=== PATIENT | female | born 2000 | race Caucasian/White ===

== ENCOUNTER 2023-04-07 20:34 | Outpatient (REF) | payer BC, SELFPAY ==
[2023-04-12 11:09] LABS: Age Gdln ACOG Testing Note (.); IGP, rfx Aptima HPV ASCU Note (.)
== END 2023-04-07 20:35 | disposition home or self-care (01) ==
LOC: LAB 20:34
PROVIDERS: Visit Provider Obstetrics & Gynecology
DX: Z12.4 Encounter for screening for malignant neoplasm of cervix (principal)
CPT/HCPCS: G0145

== ENCOUNTER 2024-04-20 19:33 | Outpatient (REF) | payer BC, SELFPAY | END 2024-04-20 19:34 | disposition home or self-care (01) | LOC: LAB 19:33 | PROVIDERS: Visit Provider Obstetrics & Gynecology | DX: Z01.419 Encounter for gynecological examination (general) (routine) without abnormal findings (principal) | CPT/HCPCS: 88175 ==

== ENCOUNTER 2025-05-09 19:19 | Outpatient (REF) | payer BC, SELFPAY ==
--- OUTSIDE RECORDS SUMMARY | 2025-05-09 13:20 | XMS_ITS | Encounter Summary ---
Author Organization [facility] Address [address] [place] [address] Care Team Providers Care Chief Of Staff Name Role Phone Unavailable Primary Care Provider Unavailabl e Reason for Visit * Reason Comments Gynecologic Exam Encounter Details Date Type Department Care Team (Late st Contact Info) Description 05/09/2025 1:20 PM EDT Office Visit [facility] [address] [place] [id number] Tex Srinivasan DO [address] [place] [address] Well woman exam with routine gynecological exam Social History Tobacco Use Types Packs/Day Years Used Date Smoking Tobacco: Never Assessed Comments No Sex and Gender Information Value Date Recorded Sex Assigned at Not on file Legal Sex Female 11:47 PM EDT Gender Identity Not on file Sexual Orientation Not on file documented as of this encounter Last Filed Vital Signs Vital Sign Reading Time Taken Comments Blood Pressure 108/62 05/09/2025 1:08 PM EDT Pulse - - Temperature - - Respiratory Rate - - Oxygen Saturation - - Inhaled Oxygen Concentration - - Weight 74.8 kg (164 lb 12.8 oz) 05/09/2025 1:08 PM EDT Height 160 cm (5' 3 ) 05/09/2025 1:08 PM EDT Body Mass Index 29.19 05/09/2025 1:08 PM EDT documented in this encounter Progress Notes * Vickie Lucas LPN - 05/09/2025 1:20 PM EDT Reason for Appointment: Patient ID: Xin Bolivar is a 25 y.o. female who presents for Gynecologic Exam Patient presents today for Annual Exam. MEDICATIONS Current Outpatient Medications Medication Instructions Hinds-Linyah 0.25-35 MG-MCG tablet 1 tablet, Oral, Daily ALLERGIES Allergies[1] PROBLEMS Active Ambulatory Problems Diagnosis Date Noted Dyspareunia in female 05/25/2024 UTI symptoms 05/25/2024 Resolved Ambulatory Problems Diagnosis Date Noted No Resolved Ambulatory Problems No Additional Past Medical History HISTORY PAST MEDICAL HISTORY SOCIAL HISTORY Medical History[2] Social History Tobacco Use Smoking status: Not on file Smokeless tobacco: Not on file Substance Use Topics Alcohol use: Not on file Drug use: Not on file FAMILY HISTORY Family History[3] SURGICAL HISTORY Surgical History[4] REVIEW OF SYSTEMS Review of Systems: Review of Systems Constitutional: Negative. HENT: Negative. Eyes: Negative. Respiratory: Negative. Cardiovascular: Negative. Gastrointestinal: Negative. Genitourinary: Negative. Musculoskeletal: Negative. Skin: Negative. Neurological: Negative. All other systems reviewed and are negative. Hematological: Negative. Endocrine: Negative. Allergic/Immunologic: Negative. OBJECTIVE Objective: Physical Exam Constitutional: Appearance: Normal appearance. She is well-developed. Genitourinary: Vulva normal. Breasts: Breasts are soft. Right: Normal. Left: Normal. Cardiovascular: Rate and Rhythm: Normal rate and regular rhythm. Pulmonary: Effort: Pulmonary effort is normal. Breath sounds: Normal breath sounds. Abdominal: General: Bowel sounds are normal. There is no distension. Palpations: Abdomen is soft. Tenderness: There is no abdominal tenderness. There is no guarding or rebound. Musculoskeletal: General: No swelling. Normal range of motion. Right lower leg: No edema. Left lower leg: No edema. Neurological: Mental Status: She is alert and oriented to person, place, and time. Skin: General: Skin is warm and dry. Psychiatric: Mood and Affect: Mood normal. Behavior: Behavior normal. Vitals and nursing note reviewed. Exam conducted with a carroting machine offbearer present. Vitals: Estimated body mass index is 29.19 kg/m?? as calculated from the following: Height as of this encounter: 5' 3 . Weight as of this encounter: 164 lb 12.8 oz. BP: 108/62 No LMP recorded. ASSESSMENT & PLAN ICD-10-CM 1. Well woman exam with routine gynecological exam Z01.419 Pap Smear No orders of the defined types were placed in this encounter. Annual Wellness Exam: Patient presents today for routine annual exam. Patient states she has no current complaints. Patients vitals were reviewed and within normal limits. Growth and development is noted to be appropriate for age. Menstrual history is noted to be regular with no concerns reported. No mental health concerns was expressed. Pap Smear: Speculum was inserted into the vagina and pap was obtained without difficulty. No HPV testing was performed per age guideline. Patient was advised that pap results could take anywhere from 7 to 10 days to receive and our office will reach out to the patient with those once we have them. Patient canalso view results via [facility]. I reinforced importance of condom use for STI prevention. Patient declined cultures to be performed with today's visit. Breast Exam: Upon examination, clinical breast exam was noted to be normal. Patient was counseled on breast self-awareness, including the importance of knowing what is normal for her own breasts and promptly reporting any changes such as new lumps, skin dimpling, nipple discharge, or pain. Screening mammogram recommended annually beginning at age 40 or earlier if risk factors are present. Discussed signs and symptoms of breast cancer and when to seek medical attention. Answered all patient questions. Contraceptive Counseling (if applicable): Patient is currently using oral contraception as a form of contraceptive. Patient to continue ocp Follow Up: Patient is to return to our office in one year for annual exam unless needed otherwise. Documented by Vickie Lucas LPN on behalf of: Tex Srinivasan DO [1] Allergies Allergen Reactions Other [2] No past medical history on file. [3] No family history on file. [4] History reviewed. No pertinent surgical history. documented in this encounter Plan of Treatment Upcoming Encounters Date Type Department Care Team (Late st Contact Info) Description 05/16/2026 11:00 AM EDT Procedure Visit [facility] [address] [place] [id number] Tex Srinivasan DO [address] [place], [place] [id number] Scheduled Orders Name Type Priority Associated Diagnoses Orde r Schedule Pap Smear Pathology and Cytology Routine Well woman exam with routine gynecological exam Ordered: 05/09/2025 documented as of this encounter Visit Diagnoses Diagnosis Well woman exam with routine gynecological exam Routine gynecological examination documented in this encounter
--- OUTSIDE RECORDS SUMMARY | 2025-05-09 19:22 | XMS_ITS | CCD ---
Author Organization [facility] Care Team Providers Care Sound Equipment Mechanic Name Role Phone HOUSE, DR ADLER Primary Care Unavailable STAS ., DR QUINONES Attending Christy MCCLELLAND ., DR QUINONES Consulting Christy MCCLELLAND ., DR QUINONES Admitting Donaldabl e Madhavi Primary Care Provider ALFREDO Vigil Attending Unavailable ALFREDO SRINIVASAN Attending Unavailable Allergies Allergy Classification Reported Allergen(s) Allergy Type Date of Onset Reaction(s) Facility (6 sources) Other Propensity to adverse reactions 3 [facility] Medications Current Medications Medication Drug Class(es) Dates Sig (Normalized) Sig (Original) ethinyl estradiol 0.035 mg / norgestimate 0.25 mg oral tablet (9 sources) Progestin, Estrogen Start: 02-28-2024 End: 04-20-2025 norgestimate-ethinyl estradiol (Dickenson-Linyah) 0.25-35 MG-MCG tablet Indications: Encounter for surveillance of contraceptive pills Take 1 tablet by mouth Daily 360 tablet 04/20/2024 04/20/2025 Active Problems Active Problems Problem Classification Problem Date Documented Date Episodic/Chronic Contraceptive and procreative management (2 sources) Oral contraception; Translations: [Encounter for surveillance of contraceptive pills] 04-20-2024 Episodic Genitourinary symptoms and ill-defined conditions (4 sources) Urinary symptoms ; Translations: [Unspecified symptoms and signs involving the genitourinary system] Onset: 05-25-2024 05-25-2024 Episodic Other female genital disorders (4 sources) Pain in female genitalia on intercourse; Translations: [Unspecified dyspareunia] Onset: 05-25-2024 05-25-2024 Chronic Past or Other Problems Problem Classification Problem Date Documented Da te Episodic/Chronic Other screening for suspected conditions (not mental disorders or infectious disease) (4 sources) Encounter for screening for malignant neoplasm of cervix; Translations: [ENC SCREENING MALIG NEOPLASM CERV] Onset: 03-27-2022 Episodic Results Test Name Value Interpretation Reference Range Facil ity IGP,APTIMA HPV,AGE GDLNon AGE GDLN ACOG TESTING Note . [facility] Comment on above: TESTS RESULT FLAG UN ITS REF RANGE LAB Clinician Provided Cytology Information Source.............Cervix;Endocervix No. of containers..01 ThinPrep Vial Age Algo ACOG Tosha... FLAG LEGEND: L-Low Normal,H-High Normal,LL-Alert Low,HH-Alert High <-Panic Low,>-Panic High,A-Abnormal,AA-Critical Abnormal Performed at: 01 =G [address] [address] Sommer Nieto MD, IGP, RFX APTIMA HPV ASCU Note . [facility] Comment on above: TESTS RESULT FLAG UN ITS REF RANGE LAB DIAGNOSIS: 02 NEGATIVE FOR INTRAEPITHELIAL LESION OR MALIGNANCY. THIS SPECIMEN WAS RESCREENED PART OF OUR PLUG MAKER PROGRAM. Specimen adequacy: 02 Satisfactory for evaluation. Endocervical and/or squamous metaplastic cells (endocervical component) are present. Performed by: 02 Sonia Jeffries, Window Shade Cutter ([facility]) QC reviewed by: 02 Ina Atwood, Window Shade Cutter ([facility]) . 02 Note: Note 02 The Pap smear is a screening test designed to aid in the detection of premalignant and malignant conditions of the uterine cervix. It is not a diagnostic procedure and should not be used as the sole means of detecting cervical cancer. Both false-positive and false-negative reports do occur. Test Methodology: Note 02 This liquid based ThinPrep(R) pap test was screened with the use of an image guided system. . 02 The HPV DNA reflex criteria were not met with this specimen result therefore, no HPV testing was performed. FLAG LEGEND: L-Low Normal,H-High Normal,LL-Alert Low,HH-Alert High <-Panic Low,>-Panic High,A-Abnormal,AA-Critical Abnormal Performed at: [address] [place] [address] Sommer Nieto MD, Performed at: =G - [facility] [address], [place] [id number] Director Of Outreach: Sommer Nieto MD, Phone: [phone] Performed at: - [facility] [id number] Director Of Outreach: Sommer Nieto MD, Phone: [phone] BRUSH-SPATULA CERVIX ENDOCERVIX [facility] PAP ACOG PANEL 2: 21 to 29on 04-03-2022 . . Normal [facility] Comment on above: Performed By: #### [id number] #### [facility] [address] [place] [address] Dr. Dasha Balderrama Age Gdln ACOG Testing 21-29 [facility] Comment on above: Performed By: #### [id number] #### [facility] [address] [place] [address] Dr. Dasha Balderrama DIAGNOSIS: Comment [facility] Comment on above: Result Comment: NEGA TIVE FOR INTRAEPITHELIAL LESION OR MALIGNANCY. Performed By: #### [id number] #### [facility] [address] [place] [address] Dr. Dasha Balderrama Methodology: Comment [facility] Comment on above: Result Comment: This liquid based ThinPrep(R) pap test was screened with the use of an image guided system. Performed By: #### 4 [id number] #### [facility] [address] [place] [address] Dr. Dasha Balderrama Note: Comment [facility] Comment on above: Result Comment: The Pap smear is a screening test designed to aid in the detection of premalignant and malignant conditions of the uterine cervix. It is not a diagnostic procedure and should not be used as the sole means of detecting cervical cancer. Both false-positive and false-negative reports do occur. . Performed By: #### 4 [id number] #### [facility] [address] [place] [address] Dr. Dasha Balderrama Performed by: Comment Normal [facility] Comment on above: Result Comment: Allison Mays Window Shade Cutter (AS[facility]) Performed By: #### [id number] #### [facility] [address] [place] [address] Dr. Dasha Balderrama Reflex Criteria: Comment [facility] Comment on above: Result Comment: The HPV DNA reflex criteria were not met with this specimen result therefore, no HPV testing was performed. . Performed By: #### 4 [id number] #### [facility] [address] [place] [address] Dr. Dasha Balderrama Specimen adequacy: Comment Normal [facility] Comment on above: Result Comment: Sati sfactory for evaluation. Endocervical and/or squamous metaplastic cells (endocervical component) are present. Performed By: #### 4 [id number] #### [facility] [address] [place] [address] Dr. Dasha Balderrama Operative Reporton Operative Report [id number] 0CD:127 Normal [facility] Lab Reportson 05-14-2021 Lab Reports [id number] 0CD:127 [facility] Ambulatory Clinical Summaryo 04-21-2021 Ambulatory Clinical Summary {[id number]}CD:[id number] [facility] Ambulatory Clinical Summary {[id number]}CD:[id number] [facility] Formson 04-21-2021 Forms [id number] 0CD:127 Normal [facility] Patient Educationon 04-21-20 21 Patient Education Urology Urinary Frequency, Adult Urinary frequency means urinating more often than usual. You may urinate every 1?2 hours even though you drink a normal amount of fluid and do not have a bladder infection or condition. Although you urinate more often than normal, the total amount of urine produced in a day is normal. With urinary frequency, you may have an urgent need to urinate often. The stress and anxiety of needing to find a bathroom quickly can make this urge worse. This condition may go away on its own or you may need treatment at home. Home treatment may include bladder training, exercises, taking medicines, or making changes to your diet. Follow these instructions at home: Bladder health ? Keep a bladder diary if told by your health care provider. Keep track of: ? What you eat and drink. ? How often you urinate. ? How much you urinate. ? Follow a bladder training program if told by your health care provider. This may include: ? Learning to delay going to the bathroom. ? Double urinating (voiding). This helps if you are not completely emptying your bladder. ? Scheduled voiding. ? Do Kegel exercises as told by your health care provider. Kegel exercises strengthen the muscles that help control urination, which may help the condition. Eating and drinking ? If told by your health care provider, make diet changes, such as: ? Avoiding caffeine. ? Drinking fewer fluids, especially alcohol. ? Not drinking in the evening. ? Avoiding foods or drinks that may irritate the bladder. These include coffee, tea, soda, artificial sweeteners, citrus, tomato-based foods, and chocolate. ? Eating foods that help prevent or ease constipation. Constipation can make this condition worse. Your health care provider may recommend that you: ? Drink enough fluid to keep your urine pale yellow. ? Take xhof-zxk-hmwfdeq or prescription medicines. ? Eat foods that are high in fiber, such as beans, whole grains, and fresh fruits and vegetables. ? Limit foods that are high in fat and processed sugars, such as fried or sweet foods. General instructions ? Take fzjf-xep-pricxua and prescription medicines only as told by your health care provider. ? Keep all follow-up visits as told by your health care provider. This is important. Contact a health care provider if: ? You start urinating more often. ? You feel pain or irritation when you urinate. ? You notice blood in your urine. ? Your urine looks cloudy. ? You develop a fever. ? You begin vomiting. Get help right away if: ? You are unable to urinate. Summary ? Urinary frequency means urinating more often than usual. With urinary frequency, you may urinate every 1?2 hours even though you drink a normal amount of fluid and do not have a bladder infection or other bladder condition. ? Your health care provider may recommend that you keep a bladder diary, follow a bladder training program, or make dietary changes. ? If told by your health care provider, do Kegel exercises to strengthen the muscles that help control urination. ? Take wdwb-rfu-frzevcg and prescription medicines only as told by your health care provider. ? Contact a health care provider if your symptoms do not improve or get worse. This information is not intended to replace advice given to you by your health care provider. Make sure you discuss any questions you have with your health care provider. Document Released: 05/08/2010 Document Revised: 01/19/2019 Document Reviewed: 01/19/2019 [employer] Patient Education ? 2019 [employer] [facility] Physician Orderon 04-21-2021 Physician Order [id number] 0CD:127 [facility] Physician Referralon 021 Physician Referral [id number] 0CD:127 [facility] Provider Letter FTMCon 04-21 Provider Letter FT April 21, [address] [address] [facility] 2001 To Whom It May Concern, Please excuse above patient from work. Date of Illness: From: 05/15/21 To: 05/15/21 May Return to Work On:05/16/2021 Restrictions: No restrictions Comments: Patient is having a surgical procedures on 05/15/21 under anesthesia. Sincerely, Nick Coelho M.D., F.A.C.S. [facility] [address] [place] [id number] [facility] Vital Signs Date Time Vital Sign Value Performing Clinician Reymundo lou 04-20-2024 11:24-0400 Body mass index (BMI) [Ratio] 29.23 kg/m2 Alfredo Craig DO Work Phone: [facility] 04-20-2024 11:24-0400 Body weight 74.84 kg Alfredo Craig DO Work Phone: [facility] 04-20-2024 11:24-0400 Diastolic blood pressure 70 mm[Hg] Alfredo Craig DO Work Phone: [facility] 04-20-2024 11:24-0400 Systolic blood pressure 116 mm[Hg] Alfredo Craig DO Work Phone: [facility] Encounters Encounter Date Encounter Type Care Provider Facility Start: 05-25-2024 End: 05-25-2024 Bamboo flowsheet Alfredo Craig DO Work Phone: [facility] Start: 05-25-2024 End: 05-25-2024 Bamboo flowsheet Alfredo Craig DO Work Phone: [facility] Start: 05-25-2024 End: 05-25-2024 ambulatory ALFREDO CRAIG Not Available Start: 05-23-2024 End: 05-25-2024 Phys/qhp telephone evaluation 5-10 min Alfredo Craig DO Work Phone: [facility] Comment on above: Dyspareunia in femal e; UTI symptoms Start: 04-20-2024 End: 04-20-2024 Bamboo flowsheet Alfredo Craig DO Work Phone: [facility] Start: 04-20-2024 End: 04-28-2024 [facility] Result Encounter Alfredo Craig DO Work Phone: [facility] Unsolicited Start: 04-20-2024 End: 04-28-2024 [facility] Result Encounter Alfredo Craig DO Work Phone: [facility] Unsolicited Start: 04-20-2024 End: 04-20-2024 Patient encounter procedure Alfredo Craig DO Work Phone: [facility] Healthcare Start: 04-20-2024 End: 04-20-2024 Periodic preventive med est patient 18-39 yrs Alfredo Craig DO Work Phone: [facility] Comment on above: Well woman exam with routine gynecological exam; Encounter for surveillance of contraceptive pills Start: 04-20-2024 End: 04-20-2024 ambulatory ALFREDO CRAIG Not Available Start: 03-27-2022 End: 03-27-[address] NAYELY OG Facility:[facility]1 Procedures Date Procedure Procedure Detail Performing Clinician Start: 04-20-2024 IGP,APTIMA HPV,AGE GDLN Alfredo Craig DO Work Phone: Plan of Treatment Date Care Activity Detail Author Start: 04-26-2025 End: 04-26-2025 Patient encounter procedure 04/26/2025 11:00 AM EDT Office Visit [facility] [address] [place] [id number] Alfredo Srinivasan, DO [address], [place] [id number] [facility] Start: 05-22-2024 End: 05-22-2024 Patient encounter procedure 05/22/2024 8:00 AM EDT Office Visit [facility] [address] [place] [address] Alfredo Srinivasan, DO [address] [place] [address] [facility] Start: 04-20-2024 End: 04-20-2024 Patient encounter procedure 04/20/2024 11:00 AM EDT Office Visit [facility] [address] [place] [address] Alfredo Srinivasan, DO [address], [place] [id number] Arrived [facility] Comment on above: Arrived Cytology Cervical or vaginal smear or scraping study Pap Smear Pathology and Cytology Routine Well woman exam with routine gynecological exam Ordered: 04/20/2024 [facility] Work Phone: Comment on above: Ordered: 04/20/2024 Payers Date Payer Category Payer [employer] BCBS [id number] 2022 Unknown BCBS BCBS xxxxxx [id number] 2022-Present [phone] [address] [place] [address] [id number] 2001 Unknown [id number] 2001 Unknown [id number] 2001 Unknown [id number] 1959 Unknown [id number] Social History Date Type Detail Facility Tobacco smoking stat [facility] Tobacco smoking consumption unknown [facility] Healthcare Start: 2001 Sex assigned at Not on file N [facility] Gender identity Not on file [facility] are History of Present illness Narrative 05-23-2024 Suzi Hugo LPN - 05/23/2024 12:05 AM EDT Note Date & Type Note Facility 05-23-2024 History of Presen t illness Narrative Reason for Appointment: Patient ID: Xin Bolivar is a 24 y.o. female who presents for No chief complaint on file. Patient presents today via telephone call for a telehealth appointment. Patients Phone #: [phone] (mobile) Current Medications: has a current medication list which includes the following prescription(s): norgestimate-ethinyl estradiol. Medical History: Active Ambulatory Problems Diagnosis Date Noted No Active Ambulatory Problems Resolved Ambulatory Problems Diagnosis Date Noted No Resolved Ambulatory Problems No Additional Past Medical History No family history on file. Social History Tobacco Use Smoking status: Not on file Smokeless tobacco: Not on file Substance Use Topics Alcohol use: Not on file Drug use: Not on file No past surgical history on file. Allergies Allergen Reactions Other Vitals: Estimated body mass index is 29.23 kg/m as calculated from the following: Height as of 04/07/23: 5' 3 . Weight as of 04/20/24: 165 lb. BP: No LMP recorded. Assessment/Plan 0964 Provider called patient and to follow up to see how Premarin cream was working since last appointment, since samples were given of Premarin. Patient voiced that she did not have time to do medication regimen and will make it a priority over the next 2 weeks and then contact office. Today's telehealth visit consisted of spending 5 minutes talking to patient on the phone. Documented by Suzi Hugo LPN on behalf of: Alfredo Srinivasan DO documented in this encounter [facility] History of Present illness Narrative 04-20-2024 Suzi Hugo LPN - 04/20/2024 11:00 AM EDT Note Date & Type Note Facility 04-20-2024 History of Presen t illness Narrative Reason for Appointment: Patient ID: Xin Bolivar is a 24 y.o. female who presents for Gynecologic Exam Patient presents today for Annual Exam. MEDICATIONS Current Outpatient Medications Medication Instructions norgestimate-ethinyl estradiol (Dickenson-Linyah) 0.25-35 MG-MCG tablet 1 tablet, Oral, Daily ALLERGIES Allergies Allergen Reactions Other PROBLEMS Active Ambulatory Problems Diagnosis Date Noted No Active Ambulatory Problems Resolved Ambulatory Problems Diagnosis Date Noted No Resolved Ambulatory Problems No Additional Past Medical History HISTORY PAST MEDICAL HISTORY SOCIAL HISTORY No past medical history on file. Social History Tobacco Use Smoking status: Not on file Smokeless tobacco: Not on file Substance Use Topics Alcohol use: Not on file Drug use: Not on file FAMILY HISTORY No family history on file. SURGICAL HISTORY No past surgical history on file. REVIEW OF SYSTEMS Review of Systems: Review of Systems Genitourinary: Positive for pelvic pain and vaginal pain. All other systems reviewed and are negative. OBJECTIVE Objective: Physical Exam Constitutional: Appearance: Normal [...] nursing note reviewed. Exam conducted with a ortho assistant present. Vitals: Estimated body mass index is 29.23 kg/m as calculated from the following: Height as of 04/07/23: 5' 3 . Weight as of this encounter: 165 lb. BP: 116/70 Patient's last menstrual period was 04/11/2024 (exact date). ASSESSMENT & PLAN ICD-10-CM 1. Well woman exam with routine gynecological exam Z01.419 Pap Smear 2. Encounter for surveillance of contraceptive pills Z30.41 norgestimate-ethinyl estradiol (Dickenson-Linyah) 0.25-35 MG-MCG tablet Annual Exam: Patient presents today for an annual exam. Patient states she is doing well other than urinary issues. Patient voiced that she saw Urology in the past and had a procedure done with no improvement. Patient denies any painful intercourse. Discussed Premarin Cream and Steroid over urethra to see if there is improvement after 2 weeks. Pap was obtained without difficulty. Patient will start with Premarin cream to see if it helps for 1 month and schedule telehealth. Follow Up: Patient is to return in one year for annual unless needed otherwise. Documented by Suzi Hugo LPN on behalf of: Alfredo Srinivasan DO documented in this encounter [facility] Clinical Note 04-21-2021 Note Date & Type Note Facility 04-21-2021 Note Chief Complaint Referral for frequency and nocturia [facility] New pt referred by Dr. Limon for urinary frequency and nocturia. Pt states she has been having these symptoms for about 6 months now. PVR today is 55ml. Dysuria: no Incomplete bladder emptying: pt feels she is not emptying Hematuria: no Frequency: yes pt states that on a bad day she is going every half hour Urgency: yes Nocturia: pt states it varies, sometimes she is up as much as 5x Stream: varies Leaking: only if she holds it too long Post void dripping: no Wearing pads/ Depends: no Urge incontinence: no Stress incontinence: sometimes if she coughs Incontinence without Sensory Awareness: no Abdominal pain: no Flank pain: no Sexual complaints: no History of Present Illness Reviewed UA and referral. There have been no associated fever, chills, flank pain or blood in the urine. Pt. denies any pain/burning with urination at this time. Review of Systems PHQ Score Initial Depression Screen Score: 0 ROS - Provider Constitutional: denies weight loss, denies hot flashes. Eyes: denies eye problems. Gastrointestinal: denies nausea, denies vomiting. Cardiovascular: denies chest pain or angina. Integumentary: no dryness Musculoskeletal: denies musculoskeletal symptoms. ENMT: denies otolaryngeal symptoms. Respiratory: no shortness of breath. Heme/Lymph: denies easy bleeding tendency, denies easy bruising tendency. Psychiatric: no confusion, no anxiety. Genitourinary: denies vaginal discharge, denies incontinence, denies dysuria, denies hematuria, severe urinary frequency, denies amenorrhea, denies menorrhagia, denies abnormal bleeding, denies pelvic pain, denies genital sores, and denies decreased libido. Physical Exam Vitals & Measurements HR: 98(Peripheral) RR: 16 BP: 115/75 HT: 163 cm HT: 163.0 cm WT: 70 kg WT: 70.0 kg BMI: 26.35 General Appearance: alert , no acute distress, well nourished, well developed female. Head: normocephalic . Eyes: normal orbit and globe. ENMT: normal examination of external ears. Chest: Lungs CTA, respirations non labored . Cardiovascular: regular rate and rhythm. Abdomen: soft, non distended, no tenderness, no mass or organomegaly, no hernia. Genitourinary: bladder nonpalpable, no flank tenderness. Lymph Nodes: unremarkable palpation of the cervical area. Skin: warm, dry, no bruising. Psychiatric: cooperative, affect appropriate for age, normal judgement, euthymic mood. Assessment/Plan 1. Urinary frequency (R35.0: Frequency of micturition) Ongoing for the past 6mos. Every half hour during the day and 5x/night. UA today shows no signs of infection. Will schedule Cystoscopy/UD. The risks and benefits have been discussed. The risks include bleeding, infection, and irritation of the bladder and urinary channel, among others. The patient, after being informed of procedural details and after questions have been answered, wishes to proceed. Full informed consent has been obtained. Will order Local anesthesia. ABX sent. Pt. is informed to always wipe from front to back to prevent infections as she has been doing the opposite. Pt. acknowledges understanding. 2. Urgency of urination (R39.15: Urgency of urination) Moderate. 3. Feeling of incomplete bladder emptying (R39.14: Feeling of incomplete bladder emptying) Pt. does not feel she's emptying. PVR today - 55ml. 4. Proteinuria (R80.9: Proteinuria, unspecified) Acute. UA today - 100mg/dL. Will continue to monitor. I have reviewed the previous health record information and history for this pt. from Dr. Coelho. Follow-up With When Contact Information JEREMIE ALFONSO, Nick Negro, UR [address] [place] [phone] Additional Instructions: Patient Education Urinary Frequency, Adult I, Scarlett Richards , personally scribed for Dr. Coelho on 04/21/2021 11:20:29. . Documentation recorded by the scribe, Scarlett Richards, accurately reflects the services(s) I performed and decisions made by me. Authenticated by Dr. Coelho on 04/21/2021 11:22:52. Problem List/Past Medical History Ongoing Anxiety Feeling of incomplete bladder emptying Frequent headaches Menorrhagia Proteinuria Urgency of urination Urinary frequency Historical No qualifying data Medications Tri-Sprintec 35 mcg Tab Allergies No Known Medication Allergies Social History Alcohol - No Risk, 04/21/2021 Tobacco Never (less than 100 in lifetime) Tobacco Use:., 04/21/2021 Family History Diabetes: Grandparent. High cholesterol: Grandparent. Lab Results Ambulatory Point of Care Results Bilirubin Urine Dipstick: 1+ Small (04/21/21 10:22:00) Blood Urine Dipstick: Negative (04/21/21 10:22:00) Glucose Urine Dipstick: Negative (04/21/21 10:22:00) Ketones Urine Dipstick: Trace - 5 mg/dl (04/21/21 10:22:00) Leukocytes Urine Dipstick: 1+ Small (04/21/21 10:22:00) Nitri (more content not included)... [facility] Comment on above: Result Comment: Elec tronically Signed By: Nick COELHO MD\.br\Date and Time Signed: 04/21/21 11:22 EDT\.br\Electronically Co-Signed By: Scarlett Richards MA\.br\Date and Time Co-Signed: 04/21/21 11:20 EDT Evaluation note Note Date & Type Note Facility Evaluation note Diagnosis Dyspareunia in female UTI symptoms documented in this encounter [facility] Evaluation note Note Date & Type Note Facility Evaluation note Diagnosis Well woman exam with routine gynecological exam Routine gynecological examination Encounter for surveillance of contraceptive pills documented in this encounter [facility] Healthcare Summary Purpose Family History No Family History Records FoundNo Family History Records FoundNo Family History Records Found Advance Directives No Advanced Directives Records FoundNo Advanced Directives Records FoundNo Advanced Directives Records Found Additional Source Comments INFORMATION SOURCE (unrecogn ized section and content) DATE CREATED AUTHOR 05/23/2021 [facility] DATE CREATED AUTHOR AUTHOR'S ORGANIZ ATION 11/13/2022 [facility] DATE CREATED AUTHOR AUTHOR'S ORGANIZ ATION 05/27/2024 [facility] Reason for Visit (unrecogniz ed section and content) Reason Comments follow up medication urinary symptoms Reason Comments Gynecologic Exam FOR RECORDS PERTAINING TO PATIENTS WHO ARE OR HAVE BEEN ENROLLED IN A CHEMICAL DEPENDENCY/SUBSTANCEABUSE PROGRAM, SOME INFORMATION MAY BE OMITTED. This clinical summary was aggregated from multiple sources. Caution should be exercised in using it in the provision of clinical care. This summary normalizes information from multiple sources, and as a consequence, information in this document may materially change the coding, format and clinical context of patient data. In addition, data may be omitted in some cases. CLINICAL DECISIONS SHOULD BE BASED ON THE PRIMARY CLINICAL RECORDS. [facility] [employer] [facility]. provides no warranty or guarantee of the accuracy or completeness of information in this document.
--- OUTSIDE RECORDS SUMMARY | 2025-05-09 19:22 | XMS_ITS | Encounter Summary ---
Author Organization [facility] Address [address] [facility] [place] [address] Care Team Providers Care Stucco Applicator Name Role Phone Unavailable Primary Care Provider Unavailabl e Encounter Details Date Type Department Care Team (Late st Contact Info) Description 04/28/2024 Orders Only [facility] [address] [place] [address] [place] Jackson LPN [address] [facility] [place] [facility] Social History Tobacco Use Types Packs/Day Years Used Date Smoking Tobacco: Never Assessed Comments No Sex and Gender Information Value Date Recorded Sex Assigned at Not on file Legal Sex Female 11:47 PM EDT Gender Identity Not on file Sexual Orientation Not on file documented as of this encounter Plan of Treatment Upcoming Encounters Date Type Department Care Team (Late st Contact Info) Description 05/16/2026 11:00 AM EDT Procedure Visit [facility] [address] [place] [address] [place] Srinivasan DO [address] [place] [id number] documented as of this encounter Procedures Procedure Name Priority Date/Time Associated Diagnosis Comments PAP SMEAR Routine 04/20/2024 12:00 AM EDT documented in this encounter Results * Pap Smear (04/20/2024 12:00 AM EDT) Swab Cervical swab / Unknown us Craig [facility] CYTOLOGY ORDERABLES Final Result EXTERNAL LAB documented in this encounter Visit Diagnoses Not on filedocumented in this encounter
--- OUTSIDE RECORDS SUMMARY | 2025-05-09 19:22 | XMS_ITS | Clinical Summary ---
Author Organization [facility] Address [address] [facility] [place] [address] Care Team Providers Care Enamel Shader Name Role Phone Unavailable Primary Care Provider Unavailabl e Allergies Active Allergy Reactions Criticality Noted Date Comments Other 02/19/2003 Medications [place]-Linyah 0.25-35 MG-MCG tabletIndications: Encounter for surveillance of contraceptive pills TAKE 1 TABLET BY MOUTH DAILY 28 tablet 3 Active Active Problems Problem Noted Date Diagnosed Date Dyspareunia in female 05/25/2024 UTI symptoms 05/25/2024 Encounters Date Type Department Care Team Description 05/09/2025 1:20 PM EDT Office Visit [facility] [address] [place] [address] Tex Srinivasan DO Well woman exam with routine gynecological exam 05/09/2025 Bamboo flowsheet [facility] [address] [place] [address] Tex Srinivasan DO 05/04/2025 Travel 03/29/2025 Refill [facility] [address] [place] [address] Tex Srinivasan DO Encounter for surveillance of contraceptive pills from Last 3 Months Social History Tobacco Use Types Packs/Day Years Used Date Smoking Tobacco: Never Assessed Comments No Sex and Gender Information Value Date Recorded Sex Assigned at Not on file Legal Sex Female 11:47 PM EDT Gender Identity Not on file Sexual Orientation Not on file Last Filed Vital Signs Vital Sign Reading [...] Mass Index 29.19 05/09/2025 1:08 PM EDT Plan of Treatment Upcoming Encounters Date Type Department Care Team (Late st Contact Info) Description 05/16/2026 11:00 AM EDT Procedure Visit [facility] [address] [place] [id number] Tex Srinivasan DO [address] [place], [place] [id number] Insurance [employer]
--- OUTSIDE RECORDS SUMMARY | 2025-05-09 19:22 | XMS_ITS | Encounter Summary ---
Author Organization [facility] Address [address] [facility] [place] [address] Care Team Providers Care Manager Landscape Name Role Phone Unavailable Primary Care Provider Unavailabl e Encounter Details Date Type Department Care Team (Late st Contact Info) Description 05/09/2025 Bamboo flowsheet [facility] [address] [place] [address] Tex Srinivasan DO [address] [place], [facility] Social History Tobacco Use Types Packs/Day Years [...] AM EDT Procedure Visit [facility] [address] [place] [address] Tex Srinivasan DO [address] [place], [facility]11 documented as of this encounter Visit Diagnoses Not on filedocumented in this encounter
--- OUTSIDE RECORDS SUMMARY | 2025-05-09 19:22 | XMS_ITS | Encounter Summary ---
Author Organization [facility] Address [address] [facility] [place] [address] Care Team Providers Care Delivery Department Supervisor Name Role Phone Unavailable Primary Care Provider Unavailabl e Encounter Details Date Type Department Care Team (Latest Contact Info) Description 05/04/2025 Travel Social History Tobacco Use Types Packs/Day Years [...] AM EDT Procedure Visit [facility] [address] [place] [id number] Tex Srinivasan DO [address] [place] [address] documented as of this encounter Visit Diagnoses Not on filedocumented in this encounter
[2025-05-15 14:09] LABS: Age Gdln ACOG Testing Note (.); IGP, rfx Aptima HPV ASCU Note (.)
== END 2025-05-09 19:20 | disposition home or self-care (01) ==
LOC: LAB 19:19
PROVIDERS: Visit Provider Obstetrics & Gynecology
DX: Z01.419 Encounter for gynecological examination (general) (routine) without abnormal findings (principal)
CPT/HCPCS: 88175